=== PATIENT | female | born 1965 | race African-American/Black ===

== ENCOUNTER 2020-06-08 12:50 | Outpatient (RCR) | payer OTHER, SELFPAY | END 2020-08-05 08:11 | disposition home or self-care (01) | LOC: HO.WCC 12:50 | PROVIDERS: Visit Provider Surgery | DX: Z09 Encounter for follow-up examination after completed treatment for conditions other than malignant neoplasm (principal); I70.201 Unspecified atherosclerosis of native arteries of extremities, right leg | CPT/HCPCS: 11042; 99212 ==